=== PATIENT | male | born 1970 | race Caucasian/White ===

== ENCOUNTER 2023-08-09 07:54 | Day surgery (SDC) | payer BC ==
[2023-08-08 12:50] LABS: BASOPHILS # (AUTO) 0.09 K/uL (0.00-0.20); EOSINOPHILS % (AUTO) 6.8 % (0.0-8.0); HEMATOCRIT 45.8 % (42-54); IMMATURE GRANULOCYTE ABSOLUTE 0.03 K/uL (0-1); LYMPHOCYTES # (AUTO) 3.2 K/uL (1.0-4.8); LYMPHOCYTES % (AUTO) 35.7 % (21.0-51.0); MEAN CORPUSCULAR HEMOGLOBIN 27.7 pg (27.0-33.0); MEAN CORPUSCULAR HGB CONC 32.8 g/dL (32.0-36.0); MEAN CORPUSCULAR VOLUME 84.5 fL (79-99); MONOCYTES # (AUTO) 0.8 K/uL (0.1-1.0); MONOCYTES % (AUTO) 8.8 % (3.0-13.0); NEUTROPHILS # (AUTO) 4.2 K/uL (1.8-7.7); NEUTROPHILS % (AUTO) 47.4 % (40.0-77.0); PLATELET COUNT (AUTO) 297 K/uL (130-400); RED BLOOD CELL COUNT(AUTO) 5.42 MIL/uL (4.50-6.20); RED CELL DISTRIBUTION WIDTH 13.2 % (11.0-15.5); WHITE BLOOD COUNT (AUTO) 8.8 K/uL (4.8-10.8)
[2023-08-08 12:58] LABS: CREATININE 0.9 mg/dL (0.5-1.3); POTASSIUM 3.7 mmol/L (3.5-5.1)
[2023-08-08 14:32] VITALS: BP 132/91; PULSE 81; RESP 18
[2023-08-09] VITALS (18 sets, daily range): BP systolic 114–141; BP diastolic 65–82; PULSE 69–85; RESP 14–18
[~2023-08-09] VITALS: Ht 185.4 cm; Wt 136.0 kg
[~2023-08-09 07:54] MED LIST: AMOX1TAB16 PO; BENA10TA77 PO; TAMS-1 PO
[2023-08-09] MEDS ORDERED: LIDOCAINE HCL 2% PF 20 ML JEL DISP.SYRIN MM ONE (08:13)
[2023-08-09] MEDS: GENTAMICIN 80 MG/NS 100 ML PB 100 ML IV ONE (08:47)
[2023-08-09] MEDS: CEFTRIAXONE 1G VIAL ONE (08:47)
[2023-08-09] MEDS: LACTATED RINGERS 1000ML 1,000 ML IV ONE (08:48)
[2023-08-09] MEDS ORDERED: MIDAZOLAM HCL 1 MG/ML 2ML VIAL ONE (08:52)
[2023-08-09] MEDS ORDERED: LIDOCAINE PF 100MG/5ML (2%) SYRINGE 5ML ONE (08:52)
[2023-08-09] MEDS ORDERED: FENTANYL CITRATE PF 50 MCG/1 ML 2ML VIAL ONE (08:52)
[2023-08-09] MEDS ORDERED: PROPOFOL 10 MG/ML 20ML VIAL IV ONE ×2 (08:52→09:28)
[2023-08-09] MEDS ORDERED: ONDANSETRON 4MG INJ ONE (08:53)
[2023-08-09] MEDS ORDERED: DEXAMETHASONE SOD PHOSPHATE 4 MG/ML 1ML VIAL ONE (08:53)
[2023-08-09] MEDS: LIDOCAINE HCL 2% PF 20 ML JEL DISP.SYRIN MM ONE (09:31)
== END 2023-08-09 11:40 | disposition home or self-care (01) ==
LOC: DAH 07:54
PROVIDERS: ATTEND Urology
DX: R97.20 Elevated prostate specific antigen [PSA] (principal); C61 Malignant neoplasm of prostate; I10 Essential (primary) hypertension; E66.9 Obesity, unspecified; Z79.899 Other long term (current) drug therapy; Z79.01 Long term (current) use of anticoagulants; Z98.890 Other specified postprocedural states; Z80.0 Family history of malignant neoplasm of digestive organs; Z68.41 Body mass index [BMI] 40.0-44.9, adult; Z82.49 Family history of ischemic heart disease and other diseases of the circulatory system; Z68.39 Body mass index [BMI] 39.0-39.9, adult
CPT/HCPCS: 80048; 85025; 36415; 55700; 88305; 76872; 76942; A6260; J1100; A4663; J7120; J3010; J2001; J0696; J2250; J2704 ×2; J2405; J1580; A4215 ×2; A4649; A4223; A4222; A4221; A4510; A4600; J3490